=== PATIENT | female | born 1985 | race Two or more races ===

== ENCOUNTER 2017-08-09 21:21 | Emergency (ER) | payer MEDICAID ==
[2017-08-09 21:34] VITALS: BP 136/107
== END 2017-08-10 03:45 | disposition left against medical advice (07) ==
LOC: DL.ED 21:21
DX: Z53.21 Procedure and treatment not carried out due to patient leaving prior to being seen by health care provider (principal)

== ENCOUNTER 2017-08-10 11:32 | Emergency (ER) | payer MEDICAID ==
[2017-08-10] MEDS ORDERED: Ondansetron 4 MG/2 ML SDV IV ONE (11:46)
[2017-08-10] MEDS ORDERED: Sodium Chloride 0.9% 1,000 ML IV ONE (11:46)
--- NOTE | 2017-08-10 12:01 | EDM.PDOC ---
ED HPI GENERAL MEDICAL PROBLEM - General Chief Complaint: Gastrointestinal Problem Stated Complaint: [id number] THROWING UP AND HEADACHE Time Seen by Provider: 08/10/17 11:45 Source of Information: Reports: Patient History Limitations: Reports: No Limitations - History of Present Illness INITIAL COMMENTS - FREE TEXT/NARRATIVE: This 32 yo female patient reports to the ED with generalized weakness and not feeling well. The patient reports she vomited numerous times yesterday. The patient reports she attempted to get into the ED yesterday, but she was not able to wait. The patient reports she attempted to get into the Clinic, but was not able to get an appointment. The patient reports she has not eaten anything since yesterday, but has been trying to drink fluids. Onset Date: 08/09/17 Duration: Constant Location: Reports: Other Severity: Moderate Improves with: Reports: None Worsens with: Reports: None Associated Symptoms: Reports: Cough, Nausea/Vomiting, Weakness - Related Data Allergies Allergy/AdvReac Type Severity Reaction Status Date / Time No Known Allergies Allergy Verified 08/10/17 11:41 Home Meds: Home Meds Insulin Detemir [Levemir Flexpen] 10 unit SQ DAILY 01/23/14 [History] Insulin Aspart [NovoLOG] 10 unit SUBCUT TID 08/09/17 [History] Past Medical History Endocrine/Metabolic History: Reports: Diabetes, Type II - Past Surgical History Female Surgical History: Reports: Section Social & Family History - Tobacco Use Smoking Status *Q: Never Smoker Years of Tobacco use: 2 Used Tobacco, but Quit: No Second Hand Smoke Exposure: No - Caffeine Use Caffeine Use: Reports: Soda - Alcohol Use Days Per Week of Alcohol Use: 0 - Recreational Drug Use Recreational Drug Use: No - Living Situation & Occupation Living situation: Reports: with Significant Other Occupation: Employed ED ROS GENERAL - Review of Systems Review Of Systems: ROS reveals no pertinent complaints other than HPI. ED EXAM, GI/ABD - Physical Exam Exam: See Below Exam Limited By: No Limitations General Appearance: Alert, WD/WN, Mild Distress, Obese Eyes: Bilateral: Normal Appearance, EOMI Ears: Normal External Exam, Normal Canal, Hearing Grossly Normal, Normal TMs Nose: Normal Inspection, Normal Mucosa, No Blood Throat/Mouth: Normal Inspection, Normal Lips, Normal Teeth, Normal Gums, Normal Oropharynx, Normal Voice, No Airway Compromise Head: Atraumatic, Normocephalic Neck: Normal Inspection, Supple, Non-Tender, Full Range of Motion Respiratory/Chest: No Respiratory Distress, Lungs Clear, Normal Breath Sounds, No Accessory Muscle Use, Chest Non-Tender Cardiovascular: Normal Peripheral Pulses, Regular Rate, Rhythm, No Edema, No Gallop, No JVD, No Murmur, No Rub GI/Abdominal Exam: Normal Bowel Sounds, Soft, Non-Tender, No Organomegaly, No Distention, No Abnormal Bruit, No Mass, Pelvis Stable, Other (obese) (Female) Exam: Deferred Rectal (Female) Exam: Deferred Extremities: Normal Inspection, Normal Range of Motion, Non-Tender, Normal Capillary Refill, No Pedal Edema Neurological: Alert, Oriented, CN II-XII Intact, Normal Cognition, Normal Gait, Normal Reflexes, No Motor/Sensory Deficits Psychiatric: Normal Affect, Normal Mood Skin Exam: Warm, Dry, Intact, Normal Color, No Rash Lymphatic: No Adenopathy Course - Vital Signs Last Recorded V/S: Last Vital Signs Temp 36.4 C 08/10/17 11:37 Pulse 105 H 08/10/17 11:37 Resp 18 08/10/17 11:37 BP 142/91 H 08/10/17 11:37 Pulse Ox 98 08/10/17 11:37 - Orders/Labs/Meds Orders: Active Orders 24 hr Category Date Time Status Chest 2V [CR] Urgent Exams 08/10/17 12:16 Ordered CULTURE STREP A CONFIRMATION [] Stat Lab 08/10/17 12:00 Results STREP SCRN A RAPID W CULT CONF [] Stat Lab 08/10/17 12:00 Received Pen G Angel/Pen G Procaine [Bicillin C-R 600/600] Med 08/10/17 12:37 Once 1.2 millunits IM ONETIME ONE Sodium Chloride 0.9% [Normal Saline] 1,000 ml Med 08/10/17 11:46 Active IV .BOLUS Medication Orders Sodium Chloride (Normal Saline) 1,000 mls @ 999 mls/hr IV .BOLUS ONE Stop: 08/10/17 12:46 Last Admin: 08/10/17 11:59 Dose: 999 mls/hr Labs: Laboratory Tests 08/10/17 08/10/17 08/10/17 Range/Units 11:50 11:50 11:57 WBC 9.3 (5.0-10.0) 10^3/uL RBC 5.11 (4.2-5.4) 10^6/uL Hgb 15.0 (12.0-16.0) g/dL Hct 42.1 (37.0-47.0) % MCV 82.4 D (80-100) fL MCH 29.4 (27.0-34.0) pg MCHC 35.6 H (33.0-35.0) g/dL Plt Count 234 (150-450) 10^3/uL Neut % (Auto) 71.5 (42.2-75.2) % Lymph % (Auto) 16.7 L (20.5-50.1) % [place] % (Auto) 10.2 H (2-8) % Eos % (Auto) 1.4 (1.0-3.0) % Baso % (Auto) 0.2 (0.0-1.0) % Sodium (135-145) mmol/L Potassium (3.6-5.0) mmol/L Chloride (101-111) mmol/L Carbon Dioxide (21.0-31.0) mmol/L Anion Gap BUN (7-18) mg/dL Creatinine (0.6-1.3) mg/dL Est Cr Clr Drug Dosing mL/min Estimated GFR (MDRD) BUN/Creatinine Ratio Glucose (74-105) mg/dL Calcium (8.4-10.2) mg/dl Total Bilirubin (0.2-1.0) mg/dL AST (10-42) IU/L ALT (10-60) IU/L Alkaline Phosphatase (42-121) IU/L Total Protein (6.7-8.2) g/dl Albumin (3.2-5.5) g/dl Globulin Albumin/Globulin Ratio Urine Color Yellow (YELLOW) Urine Appearance Slightly cloudy (CLEAR) Urine pH 6.0 (5.0-9.0) Ur Specific [place] 1.015 (1.005-1.030) Urine Protein 100 H (NEGATIVE) Urine Glucose (UA) Negative (NEGATIVE) Urine Ketones Trace H (NEGATIVE) Urine Occult Blood Negative (NEGATIVE) Urine Nitrite Negative (NEGATIVE) Urine Bilirubin Negative (NEGATIVE) Urine Urobilinogen 0.2 (0.2-1.0) mg/dL Ur Leukocyte Esterase Negative (NEGATIVE) Urine RBC Not seen /HPF Urine WBC 0-5 (0-5/HPF) /HPF Ur Epithelial Cells Many H /HPF Urine Bacteria Few (0-FEW/HPF) /HPF Urine Mucus Not seen /LPF Urine HCG, Qual Negative 08/10/17 Range/Units 11:57 WBC (5.0-10.0) 10^3/uL RBC (4.2-5.4) 10^6/uL Hgb (12.0-16.0) g/dL Hct (37.0-47.0) % MCV (80-100) fL MCH (27.0-34.0) pg MCHC (33.0-35.0) g/dL Plt Count (150-450) 10^3/uL Neut % (Auto) (42.2-75.2) % Lymph % (Auto) (20.5-50.1) % [place] % (Auto) (2-8) % Eos % (Auto) (1.0-3.0) % Baso % (Auto) (0.0-1.0) % Sodium 129 L (135-145) mmol/L Potassium 3.6 (3.6-5.0) mmol/L Chloride 98 L (101-111) mmol/L Carbon Dioxide 21.0 (21.0-31.0) mmol/L Anion Gap 13.6 BUN 12 (7-18) mg/dL Creatinine 0.6 (0.6-1.3) mg/dL Est Cr Clr Drug Dosing 105.48 mL/min Estimated GFR (MDRD) > 60 BUN/Creatinine Ratio 20.00 Glucose 334 H (74-105) mg/dL Calcium 9.2 (8.4-10.2) mg/dl Total Bilirubin 2.1 H (0.2-1.0) mg/dL AST 48 H (10-42) IU/L ALT 30 (10-60) IU/L Alkaline Phosphatase 49 (42-121) IU/L Total Protein 8.0 (6.7-8.2) g/dl Albumin 4.3 (3.2-5.5) g/dl Globulin 3.7 Albumin/Globulin Ratio 1.16 Urine Color (YELLOW) Urine Appearance (CLEAR) Urine pH (5.0-9.0) Ur Specific [place] (1.005-1.030) Urine Protein (NEGATIVE) Urine Glucose (UA) (NEGATIVE) Urine Ketones (NEGATIVE) Urine Occult Blood (NEGATIVE) Urine Nitrite (NEGATIVE) Urine Bilirubin (NEGATIVE) Urine Urobilinogen (0.2-1.0) mg/dL Ur Leukocyte Esterase (NEGATIVE) Urine RBC /HPF Urine WBC (0-5/HPF) /HPF Ur Epithelial Cells /HPF Urine Bacteria (0-FEW/HPF) /HPF Urine Mucus /LPF Urine HCG, Qual Meds: Medications Generic Name Dose Route Start Last Admin Trade Name Freq PRN Reason Stop Dose Admin Sodium Chloride 1,000 mls @ 999 mls/hr 08/10/17 11:46 08/10/17 11:59 Normal Saline IV 08/10/17 12:46 999 mls/hr .BOLUS ONE Administration Discontinued Medications Generic Name Dose Route Start Last Admin Trade Name Freq PRN Reason Stop Dose Admin Ondansetron HCl 4 mg 08/10/17 11:46 08/10/17 12:02 Zofran IV 08/10/17 11:47 4 mg ONETIME ONE Administration Departure - Departure Time of Disposition: 12:37 Disposition: Home, Self-Care 01 Condition: Fair Clinical Impression: Strep throat - Discharge Information Instructions: Strep Throat, [id number] Forms: ED Department Discharge Care Plan Goals: The patient was advised of the examination, lab and x-ray results during the visit. The patient was given an injection of Bicillin while in the ED. The patient was discharged with a script for Azithromycin (250 mg) #6 to take 2 by mouth on day 1 and 1 by mouth on days 2-5. If the patient has any additional symptoms or concerns, the patient should follow-up with her primary care facility or return to the emergency department. - My Orders Last 24 Hours: My Active Orders 08/10/17 11:46 Sodium Chloride 0.9% [Normal Saline] 1,000 ml IV .BOLUS 08/10/17 12:00 CULTURE STREP A CONFIRMATION [RM] Stat STREP SCRN A RAPID W CULT CONF [RM] Stat 08/10/17 12:16 Chest 2V [CR] Urgent 08/10/17 12:37 Pen G Angel/Pen G Procaine [Bicillin C-R 600/600] 1.2 millunits IM ONETIME ONE - Assessment/Plan Last 24 Hours: My Active Orders 08/10/17 11:46 Sodium Chloride 0.9% [Normal Saline] 1,000 ml IV .BOLUS 08/10/17 12:00 CULTURE STREP A CONFIRMATION [] Stat STREP SCRN A RAPID W CULT CONF [] Stat 08/10/17 12:16 Chest 2V [CR] Urgent 08/10/17 12:37 Pen G Angel/Pen G Procaine [Bicillin C-R 600/600] 1.2 millunits IM ONETIME ONE
[2017-08-10 12:26] LABS: ANION GAP 13.6; CHLORIDE,CL 98 mmol/L (101-111); SODIUM,NA 129 mmol/L (135-145)
[2017-08-10] MEDS ORDERED: Penicillin G Benzathine/Procaine 600-600 1.2 Millunits/2 ML Syringe IM ONE (12:37)
[2017-08-10 13:08] VITALS: BP 121/75
--- NOTE | 2017-08-10 13:11 | CR ---
Clinical history: 32-year-old female with cough and chest pain. Interpretation: Coarse perihilar markings and mild peribronchial "cuffing" typical reactive airway di sease (bronchitis). Normal cardiac silhouette without alveolar edema or dependent effusion. No lung mass, hilar lymphadenopathy or focal lobar pneumonia. No atelectasis/collapse. No pneumothora x. Samantha thorax unremarkable except for some mid dorsal spine disc disease. CONCLUSION: Bronchitis.
== END 2017-08-10 13:06 | disposition home or self-care (01) ==
LOC: DL.ED 11:32
DX: J02.0 Streptococcal pharyngitis (principal); E11.9 Type 2 diabetes mellitus without complications; Z79.4 Long term (current) use of insulin
CPT/HCPCS: 36415; 71046; 80053; 81001; 81025; 85025; 87081; 87430; 87804; 96361; 96372; 96374; 99283; J0558; J2405; J7030